=== PATIENT | female | born 1960 | race Caucasian/White ===

== ENCOUNTER 2021-07-12 13:45 | Outpatient (RCR) | payer MEDICARE, MEDICAID ==
[~2021-07-12 13:45] MED LIST: ASPI325T6 PO; CELEBREX 200MG200 MG PO; FOLIC ACID0.4 MG PO; IRON325 M1 PO; KEPPRA1000 MG PO; LAMICTAL150 MG PO; MOTRIN 200200 MG/TAB PO; NORCO 325 MG-7.1 TAB PO; VITAMIN C500 MG PO
== END 2021-07-30 | disposition home or self-care (01) ==
LOC: PT.GENESIS
DX: M25.552 Pain in left hip (principal); Z87.39 Personal history of other diseases of the musculoskeletal system and connective tissue

== ENCOUNTER 2022-01-10 12:45 | Emergency (ER) | payer MEDICARE, MEDICAID ==
[~2022-01-10] VITALS: Ht 162.6 cm; Wt 64.5 kg
[2022-01-10 13:03] VITALS: TEMP 97.9
[2022-01-10] MEDS ORDERED: DESYREL 50MG50 MG PO (13:42)
[2022-01-10] MEDS ORDERED: FLEXERIL 1010 MG/TAB PO (14:27)
[2022-01-10] MEDS ORDERED: NAPROSYN500 MG PO (14:27)
[2022-01-10 14:50] VITALS: BP 116/66; PULSE 65
== END 2022-01-10 14:46 | disposition home or self-care (01) ==
LOC: COL.ER 12:45
DX: M62.830 Muscle spasm of back (principal); Z98.890 Other specified postprocedural states; Z88.6 Allergy status to analgesic agent
CPT/HCPCS: J1885

== ENCOUNTER 2023-05-31 14:01 | Outpatient (RCR) | payer MEDICARE, MEDICAID ==
[~2023-05-31 14:01] MED LIST changes: +DESYREL 50MG50 MG PO; +FLEXERIL 1010 MG/TAB PO; +NAPROSYN500 MG PO
[2023-06-02] MEDS ORDERED: PEPCID 20MG TAB20 MG PO (10:35)
== END 2023-06-29 | disposition home or self-care (01) ==
LOC: WSOT
DX: M65.342 Trigger finger, left ring finger (principal); M65.332 Trigger finger, left middle finger